=== PATIENT | female | born 1995 | race African-American/Black ===

== ENCOUNTER 2022-05-03 23:45 | Emergency (ER) | payer MEDICAID ==
[~2022-05-03] VITALS: Ht 162.6 cm; Wt 127.0 kg
[2022-05-03 23:55] VITALS: BP 124/61
--- NOTE | 2022-05-04 00:29 | NUR ---
PATIENT LEFT WITHOUT BEING SEEN BY DR. Benitez. NO FURTHER CARE PROVIDED FOR PATIENT.
== END 2022-05-04 00:29 | disposition left against medical advice (07) ==
LOC: MED 23:45
DX: M79.10 Myalgia, unspecified site (principal); Z53.21 Procedure and treatment not carried out due to patient leaving prior to being seen by health care provider
CPT/HCPCS: 99281